=== PATIENT | female | born 1945 | race Caucasian/White ===

== ENCOUNTER → 2017-10-06 | Outpatient (CLI) | payer MEDICARE, OTHER ==
[~2017-10-06] MED LIST: DITROPAN XL5 MG PO; NEXIUM40 MG PO; TYLENOL WITH C1 EACH PO; ULTRAM50 MG PO; ZOLOFT50 MG PO
--- NOTE | 2017-10-06 11:06 | Diagnostic Imaging Report ---
PROCEDURE:X-RAY ABDOMEN - KUB COMPARISON:KUB 08/25/1217. INDICATIONS:CALCULI OF KIDNEY FINDINGS: There are no dilated loops of bowel to suggest obstruction. There are no masses or abnormal calcifications. There is no evidence of free air. No acute osseous abnormalities are present. Vertebral plasty in T12 vertebral body. CONCLUSION: No acute abdominal abnormality. Dictated by: Derik Graves M.D. on 10/06/2017 at 11:14 Electronically approved by: Derik Graves M.D. on 10/06/2017 at 11:14
== END ==
LOC: RAD 08:25
PROVIDERS: ATTEND Urology
DX: N20.0 Calculus of kidney (principal)
CPT/HCPCS: 74000

== ENCOUNTER 2017-10-20 15:10 | Observation (INO) | payer MEDICARE, OTHER ==
[~2017-10-20] VITALS: Ht 160 cm; Wt 74.6 kg
[2017-10-20 15:43] LABS: BILIRUBIN,URINE NEGATIVE (NEGATIVE); CLARITY,URINE CLEAR (CLEAR); COLOR,URINE YELLOW (YELLOW); KETONES,URINE NEGATIVE (NEGATIVE); LEUKOCYTE ESTERASE ,URINE NEGATIVE (NEGATIVE); NITRITE,URINE NEGATIVE (NEGATIVE); PROTEIN,URINE DIPSTICK NEGATIVE (NEGATIVE); URINE UROBILINOGEN 0.2 mg/dL (0.2 - 1)
[2017-10-20] MEDS ORDERED: ONDANSETRON HCL INJ 2 MG/ML VIAL IV STA (15:46)
[2017-10-20 15:49] LABS: EPITHELIAL CELLS,URINE RARE /LPF; RBC,URINE 0-5 /HPF (0-5); WBC,URINE (MAN) 0-5 /HPF (0-5)
[2017-10-20 16:07] LABS: BASOPHILS % 0.5 % (0.0-1.0); EOSINOPHILS # (AUTO) 0.2 (0.0-0.4); EOSINOPHILS % 2.9 % (0.0-6.0); HEMATOCRIT 40.5 % (34.2-44.1); HEMOGLOBIN 13.8 g/dL (12.0-16.0); LYMPHOCYTES % 30.4 % (18.0-39.1); MEAN CORPUSCULAR HEMOGLOBIN 29.9 pg (28-32); MEAN CORPUSCULAR HGB CONC 34.1 g/dL (31-35); MEAN CORPUSCULAR VOLUME 87.7 fL (81-99); MONOCYTES # (AUTO) 0.3 (0.2-0.8); MONOCYTES % 5.3 % (4.4-11.3); NEUTROPHILS # (AUTO) 3.9 (2.1-6.9); NEUTROPHILS % 60.6 % (38.7-80.0); PLATELET COUNT 195 x10e3/uL (140-360); RED BLOOD COUNT 4.62 x10e6/uL (3.6-5.1); RED CELL DISTRIBUTION WIDTH 13.1 % (11.7-14.4)
[2017-10-20 16:25] LABS: ALANINE AMINOTRANSFERASE 15 IU/L (0-55); ALBUMIN 4.4 g/dL (3.5-5.0); ALBUMIN/GLOBULIN RATIO 1.8 (0.8-2.0); ALKALINE PHOSPHATASE 97 IU/L (40-150); ANION GAP 13.3 mmol/L (8-16); BLOOD UREA NITROGEN 15 mg/dL (7-26); BUN/CREATININE RATIO 19 (6-25); CALCIUM 9.2 mg/dL (8.4-10.2); CARBON DIOXIDE 21 mmol/L (22-29); CHLORIDE 106 mmol/L (98-107); EST GLOMERULAR FILTRATION RATE > 60 ML/MIN (60-); GLUCOSE 98 mg/dL (74-118); POTASSIUM 3.3 mmol/L (3.5-5.1); SODIUM 137 mmol/L (136-145)
[2017-10-20 16:38] LABS: B-TYPE NATRIURETIC PEPTIDE2 < 10.0 pg/mL (0-100)
[2017-10-20] MEDS ORDERED: PROMETHAZINE 12.5MG/ NACL 0.9% 12.5 MG/50 ML BAG IV ONE (18:15)
--- NOTE | 2017-10-20 18:19 | Diagnostic Imaging Report ---
EXAM: CT Abdomen and Pelvis WITH contrast INDICATION: Nausea and diarrhea COMPARISON: KUB from 10/06/[address] abdomen and pelvis from 12/13/2015 TECHNIQUE: Abdomen and pelvis were scanned utilizing a multidetector helical scanner from the lung base to the pubic symphysis after administration of IV contrast. Coronal and sagittal reformations were obtained. Routine protocol was performed. Scan was performed when during portal venous phase. IV CONTRAST: 100 mL of Isovue-370 ORAL CONTRAST: None RADIATION DOSE: Total DLP: 453.9 mGy*cm Estimated effective dose: (DLP x 0.015 x size factor) mSv COMPLICATIONS: None FINDINGS: LINES and TUBES: None. LOWER THORAX: Unremarkable HEPATOBILIARY: No focal hepatic lesions. No biliary ductal dilation. GALLBLADDER: No radio-opaque stones or sludge. No wall thickening. SPLEEN: Mild splenomegaly. The spleen measures 12.9 cm in length. PANCREAS: No focal masses or ductal dilatation. ADRENALS: No adrenal nodules KIDNEYS/URETERS: Kidneys enhance symmetrically. No hydronephrosis. No cystic or solid mass lesions. 6 mm nonobstructing calcified stone in the inferior pole of the left kidney is less denser when compared to prior exam. Additional previously noted stones are no longer seen. No calcified stones in the right kidney. GI TRACT: Diffuse inflammatory changes within the right lower quadrant involving the distal ascending colon and few loops of small bowel with an adjacent well-circumscribed fluid collection measuring 3.3 x 6.1 cm in the right pelvis on series 302, image 72. The cystic structure may represent a loculated fluid but cannot exclude focal dilatation of a small loop of bowel. Lack of oral contrast limits evaluation. PELVIC ORGANS/BLADDER: The uterus is absent. Bilateral ovaries are unremarkable. The urinary bladder is unremarkable. LYMPH NODES: No lymphadenopathy. VESSELS: Unremarkable. PERITONEUM / RETROPERITONEUM: No free air. Oval-shaped low-attenuation fluid in the right lower quadrant may represent loculated fluid but cannot exclude focal dilatation of a loop of bowel. BONES: There are degenerative changes in the lumbar spine. Kyphoplasty at T12 vertebral body. Mild wedge compression deformity of T11 vertebral body. SOFT TISSUES: Unremarkable. IMPRESSION: Diffuse inflammatory changes in the right lower quadrant involving the cecum and few loops of small bowel with an adjacent loculated fluid collection, which may represent contained fluid or focal dilatation of a loop of small bowel. Differential diagnoses include appendicitis, abscess, focal colitis. Correlated with clinical exam and recommend pelvic ultrasound. Findings were discussed with Dr. Ortez on 10/20/2017 at 6:15 PM. Signed by: Dr. Marta Montalvo M.D. on 10/20/2017 6:15 PM
[2017-10-20] MEDS ORDERED: PROMETHAZINE HCL (IM) 25 MG/ML VIAL IV PRN (18:45)
[2017-10-20] MEDS: METRONIDAZOLE 500MG/NS 100ML 100 ML IV SCH (19:08)
[2017-10-20] MEDS: SODIUM CHLORIDE 0.9% 1000ML 1,000 ML IV SCH (19:08)
[2017-10-20 20:30] VITALS: BP 133/67
--- NOTE | 2017-10-20 20:55 | Diagnostic Imaging Report ---
EXAM: Transabdominal and Transvaginal Pelvic Ultrasound INDICATION: \S\pelvic mass \S\Y COMPARISON: CT abdomen and pelvis from 10/20/2017 TECHNIQUE: Grayscale transverse and sagittal transabdominal and transvaginal images were obtained of the pelvis. Transvaginal imaging was medically necessary to better evaluate the endometrium and the adnexa. CLINICAL HISTORY: 72 year old A0; last menstrual period: Postmenopausal. FINDINGS: Uterus Partial hysterectomy. No fluid collections or masses in the surgical site. Right ovary: No visualize. Left ovary: No visualize. Adnexa: Normal Cul-de-sac: No free fluid The mildly dilated fluid filled structure noted in the right lower quadrant on prior CT appears to correspond to a mildly dilated loop of bowel. IMPRESSION: Status post hysterectomy. Ovaries not well visualized. No free fluid in the pelvis. Signed by: Dr. Marta Montalvo M.D. on 10/20/2017 8:51 PM
[2017-10-20] MEDS: PIPER-TAZ 3.375 GM 50 ML IV SCH (21:06)
[2017-10-20] MEDS ORDERED: SODIUM CHLORIDE 0.9% 50ML 50 ML ONE (22:37)
[2017-10-20] MEDS ORDERED: IOPAMIDOL 370 MG/ML 200 ML INFUS..BTL INJ ONE (22:37)
[2017-10-20 22:38] VITALS: BP 133/67
[2017-10-21] VITALS (8 sets, daily range): BP systolic 119–136; BP diastolic 60–92
[2017-10-21] MEDS: METRONIDAZOLE 500MG/NS 100ML 100 ML IV SCH ×5 (00:41→23:30)
[2017-10-21] MEDS: PROMETHAZINE 12.5MG/ NACL 0.9% 50 ML IV PRN ×2 (01:37→05:34)
[2017-10-21] MEDS: PIPER-TAZ 3.375 GM 50 ML IV SCH ×3 (05:54→22:07)
[2017-10-21 07:05] LABS: BASOPHILS % 0.6 % (0.0-1.0); EOSINOPHILS # (AUTO) 0.2 (0.0-0.4); EOSINOPHILS % 3.1 % (0.0-6.0); LYMPHOCYTES % 21.3 % (18.0-39.1); MEAN CORPUSCULAR HEMOGLOBIN 29.7 pg (28-32); MEAN CORPUSCULAR HGB CONC 33.3 g/dL (31-35); MEAN CORPUSCULAR VOLUME 89.1 fL (81-99); MONOCYTES # (AUTO) 0.3 (0.2-0.8); MONOCYTES % 6.3 % (4.4-11.3); NEUTROPHILS # (AUTO) 3.3 (2.1-6.9); NEUTROPHILS % 68.3 % (38.7-80.0); PLATELET COUNT 155 x10e3/uL (140-360); RED BLOOD COUNT 4.04 x10e6/uL (3.6-5.1); RED CELL DISTRIBUTION WIDTH 13.2 % (11.7-14.4)
[2017-10-21 07:43] LABS: ALANINE AMINOTRANSFERASE 15 IU/L (0-55); ALBUMIN 3.7 g/dL (3.5-5.0); ALBUMIN/GLOBULIN RATIO 1.6 (0.8-2.0); ALKALINE PHOSPHATASE 79 IU/L (40-150); AMYLASE 32 U/L (25-125); ANION GAP 13.1 mmol/L (8-16); BLOOD UREA NITROGEN 13 mg/dL (7-26); BUN/CREATININE RATIO 16 (6-25); CALCIUM 8.7 mg/dL (8.4-10.2); CARBON DIOXIDE 25 mmol/L (22-29); CHLORIDE 113 mmol/L (98-107); CREATININE, SERUM 0.79 mg/dL (0.57-1.11); EST GLOMERULAR FILTRATION RATE > 60 ML/MIN (60-); GLUCOSE 96 mg/dL (74-118); LIPASE 10 U/L (8-78); POTASSIUM 4.1 mmol/L (3.5-5.1); SODIUM 147 mmol/L (136-145)
--- NOTE | 2017-10-21 09:12 | Diagnostic Imaging Report ---
PROCEDURE:ABDOMEN COMP INCL UPR OR DECUB TECHNIQUE:Upright and supine AP views abdomen INDICATION:Nausea COMPARISON:Patients [facility], CT, CT ABDOMEN/PELVIS W, 10/20/2017, 16:38. Patients [facility], DX, ABDOMEN-1VIEW (KUB), 10/06/2017, 8:37. FINDINGS: Normal bowel gas pattern. No evidence of pneumatosis or pneumoperitoneum. No evidence of organomegaly or ascites. Intact skeleton. T12 vertebroplasty. CONCLUSION: No acute abnormality. Dictated by: Shon Kitchen M.D. on 10/21/2017 at 9:21 Electronically approved by: Shon Kitchen M.D. on 10/21/2017 at 9:21
[2017-10-21] MEDS ORDERED: METOCLOPRAMIDE HCL 10 MG/2ML VIAL IV ONE (09:30)
[2017-10-21] MEDS ORDERED: ONDANSETRON HCL INJ 2 MG/ML VIAL IV STA (10:11)
[2017-10-21] MEDS: SODIUM CHLORIDE 0.9% 1000ML 1,000 ML IV SCH (13:57)
[2017-10-21] MEDS ORDERED: METOCLOPRAMIDE HCL 10 MG/2ML VIAL IV SCH (15:00)
[2017-10-21] MEDS ORDERED: ONDANSETRON HCL INJ 2 MG/ML VIAL IV SCH (16:00)
[2017-10-21] MEDS ORDERED: PROMETHAZINE 12.5MG/ NACL 0.9% 12.5 MG/50 ML BAG IV PRN (17:15)
[2017-10-21] MEDS ORDERED: MAGNESIUM HYDROXIDE 30 ML UDC PO PRN (17:15)
[2017-10-21] MEDS: DOCUSATE SODIUM LIQD 100 MG/10 ML UDC NG SCH (17:31)
[2017-10-21] MEDS: FAMOTIDINE 20 MG/2 ML VIAL IV SCH (17:31)
--- NOTE | 2017-10-21 17:50 | History and Physical ---
Primary care physician: Dr. Oral Cabrera. CHIEF COMPLAINT: Nausea and vomiting. HISTORY OF PRESENT ILLNESS: This is a 72-year-old woman with a history of anxiety and depression, now developing intractable nausea for the past 7 days. On further questioning, she denies any real vomiting. She has had some diarrhea. The patient also states she has been constipated and has been taking medication with mild diarrhea. She had no fever or chills. She had worsening abdominal pain. Imaging showed some fluid collection in the right pelvis. She is admitted for further evaluation and management. PAST MEDICAL HISTORY: Depression and anxiety. Acute colitis in 2013. Renal calculus without obstruction. Urinary tract infection. Nephrolithiasis. PAST SURGICAL HISTORY: Appendectomy, hysterectomy, left breast lumpectomy. ALLERGIES: PER ELECTRONIC MEDICAL RECORDS. FAMILY HISTORY/SOCIAL HISTORY: The patient's mother had a hysterectomy. Father is with multiple strokes. She has siblings with asthma. The patient is . No alcohol, illicits or cigarettes. MEDICATIONS: Per electronic medical records. REVIEW OF SYSTEMS: Denies any chest pain at this time. PHYSICAL EXAMINATION VITAL SIGNS: Reviewed. GENERAL APPEARANCE: A tired-appearing woman resting in the bed. HEENT: Anicteric. CARDIOVASCULAR: Normal S1 and S2. LUNGS: Moderate breath sounds, ABDOMEN: Soft and nontender. Nondistended. EXTREMITIES: There is no edema or calf tenderness. NEUROLOGIC: Alert and oriented x3. Moving all extremities. SKIN: Dry. PSYCHIATRIC: Normal affect. LABS: Reviewed. MEDICATIONS: Reviewed. ASSESSMENT AND PLAN: A 72-year-old woman. 1. Intractable nausea. Will use antiemetics. Will start on a clear liquid diet now. 2. Hypernatremia. Will rehydrate the patient and reassess. 3. Right pelvic fluid collection. The patient does not have any fever. There is no leukocytosis. No abdominal pain. She has been evaluated by surgery. This does not appear to be an abscess, but will continue empirically with IV Zosyn and reassess labs tomorrow. 4. Anxiety disorder. Restart her home medication. 5. Prophylaxis: SCDs. DISPOSITION: Monitor closely overnight and obtain labs in the morning and start liquid diet. Job#: [id number]
[2017-10-21] MEDS: ONDANSETRON HCL INJ 2 MG/ML VIAL IV SCH (20:12)
[2017-10-21] MEDS: SENNOSIDES 8.6 MG TAB PO SCH (21:00)
[2017-10-22] VITALS: BP 117/53
[2017-10-22] MEDS: ONDANSETRON HCL INJ 2 MG/ML VIAL IV SCH ×4 (03:31→21:00)
[2017-10-22 04:00] VITALS: BP 116/55
[2017-10-22] MEDS: PIPER-TAZ 3.375 GM 50 ML IV SCH ×3 (06:14→21:33)
[2017-10-22] MEDS: METRONIDAZOLE 500MG/NS 100ML 100 ML IV SCH ×4 (06:50→23:48)
[2017-10-22 06:57] LABS: BASOPHILS % 0.7 % (0.0-1.0); EOSINOPHILS # (AUTO) 0.2 (0.0-0.4); EOSINOPHILS % 3.9 % (0.0-6.0); HEMATOCRIT 37.2 % (34.2-44.1); HEMOGLOBIN 12.4 g/dL (12.0-16.0); LYMPHOCYTES # (AUTO) 1.7 (1.0-3.2); LYMPHOCYTES % 27.8 % (18.0-39.1); MEAN CORPUSCULAR HEMOGLOBIN 29.5 pg (28-32); MEAN CORPUSCULAR HGB CONC 33.3 g/dL (31-35); MEAN CORPUSCULAR VOLUME 88.6 fL (81-99); MONOCYTES # (AUTO) 0.4 (0.2-0.8); MONOCYTES % 6.4 % (4.4-11.3); NEUTROPHILS # (AUTO) 3.7 (2.1-6.9); PLATELET COUNT 151 x10e3/uL (140-360); RED CELL DISTRIBUTION WIDTH 13.2 % (11.7-14.4)
[2017-10-22 07:19] LABS: ANION GAP 14.3 mmol/L (8-16); BLOOD UREA NITROGEN 11 mg/dL (7-26); BUN/CREATININE RATIO 14 (6-25); CALCIUM 8.6 mg/dL (8.4-10.2); CARBON DIOXIDE 20 mmol/L (22-29); CHLORIDE 115 mmol/L (98-107); CREATININE, SERUM 0.81 mg/dL (0.57-1.11); EST GLOMERULAR FILTRATION RATE > 60 ML/MIN (60-); GLUCOSE 96 mg/dL (74-118); MAGNESIUM 1.7 MG/DL (1.3-2.1); PHOSPHORUS 2.9 MG/DL (2.3-4.7); POTASSIUM 3.3 mmol/L (3.5-5.1); SODIUM 146 mmol/L (136-145)
[2017-10-22 08:00] VITALS: BP_SYST 128; BP_SYST 143; BP_DIAS 61; BP_DIAS 64
[2017-10-22] MEDS ORDERED: DEXTROSE 5%/0.45% SOD CHL 1,000 ML IV ONE (08:15)
[2017-10-22] MEDS ORDERED: POTASSIUM CHLORIDE 20MEQ/100ML 100 ML IV ONE (08:30)
[2017-10-22] MEDS: LORAZEPAM INJ 2 MG/ML VIAL IV PRN (08:41)
[2017-10-22] MEDS: FAMOTIDINE 20 MG/2 ML VIAL IV SCH ×2 (09:18→17:36)
[2017-10-22] MEDS: SERTRALINE HCL 50 MG TAB PO SCH (09:18)
[2017-10-22] MEDS: DOCUSATE SODIUM LIQD 100 MG/10 ML UDC NG SCH ×2 (09:44→16:08)
[2017-10-22] MEDS: SENNOSIDES 8.6 MG TAB PO SCH ×2 (09:44→20:08)
[2017-10-22] MEDS ORDERED: PEG (High)/E-LYTE SOLN 4,000 ML BTL PO NR (10:00)
[2017-10-22 10:10] VITALS: BP 143/64
[2017-10-22 12:32] VITALS: BP 141/67
[2017-10-22] MEDS ORDERED: POTASSIUM CHLORIDE 20 MEQ TAB CR PO STA (13:03)
[2017-10-22 20:00] VITALS: BP 132/59
[2017-10-23] VITALS (8 sets, daily range): BP systolic 118–132; BP diastolic 58–89
[2017-10-23] MEDS: ONDANSETRON HCL INJ 2 MG/ML VIAL IV SCH ×4 (03:00→21:50)
[2017-10-23] MEDS: PIPER-TAZ 3.375 GM 50 ML IV SCH ×3 (05:40→21:51)
[2017-10-23] MEDS: METRONIDAZOLE 500MG/NS 100ML 100 ML IV SCH ×4 (06:00→23:09)
[2017-10-23 06:42] LABS: BASOPHILS % 0.6 % (0.0-1.0); EOSINOPHILS # (AUTO) 0.3 (0.0-0.4); EOSINOPHILS % 6.3 % (0.0-6.0); HEMATOCRIT 33.3 % (34.2-44.1); HEMOGLOBIN 11.2 g/dL (12.0-16.0); LYMPHOCYTES # (AUTO) 1.2 (1.0-3.2); LYMPHOCYTES % 24.4 % (18.0-39.1); MEAN CORPUSCULAR HEMOGLOBIN 29.8 pg (28-32); MEAN CORPUSCULAR HGB CONC 33.6 g/dL (31-35); MEAN CORPUSCULAR VOLUME 88.6 fL (81-99); MONOCYTES # (AUTO) 0.3 (0.2-0.8); MONOCYTES % 6.3 % (4.4-11.3); NEUTROPHILS % 61.8 % (38.7-80.0); PLATELET COUNT 137 x10e3/uL (140-360); RED BLOOD COUNT 3.76 x10e6/uL (3.6-5.1); RED CELL DISTRIBUTION WIDTH 13.2 % (11.7-14.4)
[2017-10-23 06:58] LABS: ANION GAP 10.3 mmol/L (8-16); BLOOD UREA NITROGEN 10 mg/dL (7-26); BUN/CREATININE RATIO 13 (6-25); CALCIUM 8.2 mg/dL (8.4-10.2); CARBON DIOXIDE 23 mmol/L (22-29); CHLORIDE 113 mmol/L (98-107); CREATININE, SERUM 0.78 mg/dL (0.57-1.11); EST GLOMERULAR FILTRATION RATE > 60 ML/MIN (60-); GLUCOSE 107 mg/dL (74-118); MAGNESIUM 1.8 MG/DL (1.3-2.1); PHOSPHORUS 2.5 MG/DL (2.3-4.7); POTASSIUM 3.3 mmol/L (3.5-5.1); SODIUM 143 mmol/L (136-145)
[2017-10-23] MEDS: LORAZEPAM INJ 2 MG/ML VIAL IV PRN (07:45)
[2017-10-23] MEDS: SENNOSIDES 8.6 MG TAB PO SCH ×2 (08:59→21:00)
[2017-10-23] MEDS: SERTRALINE HCL 50 MG TAB PO SCH (08:59)
[2017-10-23] MEDS: DOCUSATE SODIUM LIQD 100 MG/10 ML UDC NG SCH ×2 (08:59→17:00)
[2017-10-23] MEDS: FAMOTIDINE 20 MG/2 ML VIAL IV SCH ×2 (08:59→19:05)
[2017-10-23] MEDS ORDERED: DEXTROSE 5%/0.45% SOD CHL 1,000 ML IV ONE (09:15)
[2017-10-23] MEDS ORDERED: POTASSIUM CHLORIDE 20MEQ/100ML 100 ML IV ONE ×2 (09:15→10:00)
[2017-10-23] MEDS ORDERED: FENTANYL CITRATE/PF 100MCG/2 ML INJ ONE (15:09)
[2017-10-23] MEDS ORDERED: MIDAZOLAM HCL 2 MG/2 ML VIAL ONE (15:09)
[2017-10-23] MEDS ORDERED: PROPOFOL IV EMULSION 10 MG/ML 50 ML VIAL ONE (15:12)
[2017-10-23] MEDS ORDERED: HYOSCYAMINE SULFATE 0.5 MG/ML AMP ONE (15:12)
[2017-10-24] VITALS: BP 113/57
--- NOTE | 2017-10-24 02:30 | Operative Report ---
DATE OF PROCEDURE: October 23, 2017 REFERRING PHYSICIAN: Dr. Bozena Schmidt PROCEDURE PERFORMED: Colonoscopy with polypectomy and biopsies. INDICATIONS FOR COLONOSCOPY: Abnormal CT scan of the abdomen. MEDICATION: Patient was done under MAC. Please see anesthesiologist's note. PROCEDURE: With the patient in the left lateral decubitus position, the flexible fiberoptic Olympus colonoscope was inserted into the rectum with ease and advanced all the way to the cecum. Mucosa overlying the cecum revealed some patchy areas of erythema and low-grade to moderate edema, and biopsies were obtained. The ileocecal valve was intubated. The scope was advanced into the terminal ileum. Biopsies were obtained. The scope was then withdrawn back into the colon. It was then withdrawn slowly. Mucosa overlying the ascending and transverse grossly appeared to be within normal limits. One polyp was hot biopsied from the descending colon. One polyp was hot biopsied from the sigmoid. Minimal diverticulosis was noted in the sigmoid. The rectum grossly appeared to be within normal limits. The scope was then with retroflexed into the distal rectum, and the area around the dentate line appeared to be within normal limits. The scope was then withdrawn. External hemorrhoids were noted on the way out. Patient tolerated the procedure well. IMPRESSION 1. Descending colon polyp, hot biopsied. 2. Sigmoid colon polyp, hot biopsied. 3. Diverticulosis of sigmoid colon, minimal. 4. External hemorrhoids. PLAN: Follow up histology. Initiate GI soft diet. Patient will need a followup colonoscopy in 3 years. Job#: [id number] RI cc:BOZENA SCHMIDT MD
[2017-10-24] MEDS: ONDANSETRON HCL INJ 2 MG/ML VIAL IV SCH ×3 (02:48→14:01)
[2017-10-24 04:00] VITALS: BP 120/64
[2017-10-24] MEDS: PIPER-TAZ 3.375 GM 50 ML IV SCH ×2 (05:50→13:46)
[2017-10-24 06:12] LABS: BASOPHILS % 0.6 % (0.0-1.0); EOSINOPHILS # (AUTO) 0.4 (0.0-0.4); EOSINOPHILS % 7.2 % (0.0-6.0); HEMATOCRIT 33.9 % (34.2-44.1); HEMOGLOBIN 11.5 g/dL (12.0-16.0); LYMPHOCYTES # (AUTO) 1.3 (1.0-3.2); LYMPHOCYTES % 24.7 % (18.0-39.1); MEAN CORPUSCULAR HEMOGLOBIN 29.8 pg (28-32); MEAN CORPUSCULAR HGB CONC 33.9 g/dL (31-35); MEAN CORPUSCULAR VOLUME 87.8 fL (81-99); MONOCYTES # (AUTO) 0.3 (0.2-0.8); MONOCYTES % 6.3 % (4.4-11.3); NEUTROPHILS # (AUTO) 3.3 (2.1-6.9); NEUTROPHILS % 60.8 % (38.7-80.0); PLATELET COUNT 129 x10e3/uL (140-360); RED BLOOD COUNT 3.86 x10e6/uL (3.6-5.1); RED CELL DISTRIBUTION WIDTH 13.1 % (11.7-14.4)
[2017-10-24] MEDS: METRONIDAZOLE 500MG/NS 100ML 100 ML IV SCH ×3 (06:34→17:28)
[2017-10-24 06:39] LABS: ANION GAP 10.3 mmol/L (8-16); BLOOD UREA NITROGEN 6 mg/dL (7-26); BUN/CREATININE RATIO 8 (6-25); CALCIUM 8.3 mg/dL (8.4-10.2); CARBON DIOXIDE 22 mmol/L (22-29); CHLORIDE 114 mmol/L (98-107); CREATININE, SERUM 0.79 mg/dL (0.57-1.11); EST GLOMERULAR FILTRATION RATE > 60 ML/MIN (60-); GLUCOSE 94 mg/dL (74-118); POTASSIUM 3.3 mmol/L (3.5-5.1); SODIUM 143 mmol/L (136-145)
[2017-10-24 08:00] VITALS: BP 116/57
[2017-10-24] MEDS: DOCUSATE SODIUM LIQD 100 MG/10 ML UDC NG SCH ×2 (08:30→17:00)
[2017-10-24] MEDS: SERTRALINE HCL 50 MG TAB PO SCH (08:30)
[2017-10-24] MEDS: SENNOSIDES 8.6 MG TAB PO SCH (08:30)
[2017-10-24] MEDS: FAMOTIDINE 20 MG/2 ML VIAL IV SCH ×2 (08:30→17:28)
[2017-10-24 09:36] VITALS: BP 116/57
[2017-10-24 12:07] VITALS: BP 140/66
[2017-10-24] MEDS ORDERED: POTASSIUM CHLORIDE 20 MEQ TAB CR PO ONE (14:00)
[2017-10-24] MEDS ORDERED: SENOKOT8.6 MG PO (14:56)
[2017-10-24] MEDS ORDERED: COLACE100 MG/10 NG (14:56)
[2017-10-24 16:10] VITALS: BP 150/67
== END 2017-10-24 19:39 | disposition home or self-care (01) ==
LOC: ER 15:10 → MED/SURG 19:46
PROVIDERS: ADMIT Internal Medicine; ATTEND Internal Medicine
DX: R11.0 Nausea (principal); K63.5 Polyp of colon; E87.0 Hyperosmolality and hypernatremia; E87.6 Hypokalemia; K63.89 Other specified diseases of intestine; K57.30 Diverticulosis of large intestine without perforation or abscess without bleeding; K59.00 Constipation, unspecified; K64.4 Residual hemorrhoidal skin tags; R19.00 Intra-abdominal and pelvic swelling, mass and lump, unspecified site; R93.5 Abnormal findings on diagnostic imaging of other abdominal regions, including retroperitoneum; F32.9 Major depressive disorder, single episode, unspecified; F41.9 Anxiety disorder, unspecified; Z87.440 Personal history of urinary (tract) infections; Z87.442 Personal history of urinary calculi
CPT/HCPCS: 36415 ×5; 45384; 74021; 74177; 76856; 80048 ×3; 80053 ×2; 81001; 82150; 83605; 83690; 83735 ×2; 83880; 84100 ×2; 84132; 85025 ×5; 87086; 88305; 96367 ×2; 96374; 96375; 96376; 97139; 99284; G0378 ×5; J1980; J2060 ×3; J2250; J2405 ×5; J2543 ×5; J2550 ×2; J2765; J3480 ×2; J7030 ×2; Q9967; 45380; 74020

== ENCOUNTER → 2018-03-08 | Outpatient (CLI) | payer MEDICARE, OTHER ==
[~2018-03-08] MED LIST changes: +COLACE100 MG/10 NG; +SENOKOT8.6 MG PO
--- NOTE | 2018-03-08 14:30 | Diagnostic Imaging Report ---
PROCEDURE:X-RAY ABDOMEN - KUB COMPARISON:Patients [facility], CT, CT ABDOMEN/PELVIS W, 10/20/2017, 16:38. Patients [facility], DX, ABDOMEN COMP INCL UPR OR DECUB, 10/21/2017, 8:51. INDICATIONS:KIDNEY STONES FINDINGS: There is a non-obstructed bowel-gas pattern. 2-3 mm radiopaque density projecting in the inferior pole of the left kidney, corresponding to the obstructing calculus seen on CT dated 10/20/2017. No other radiopaque densities project over the renal shadows, expected course of ureters or bladder. Generalized osteopenia, with chronic compression deformity and vertebroplasty changes at T12. No acute bony abnormalities. CONCLUSION: 2-3 mm nonobstructing calculus in the inferior pole of the left kidney. No other radiopaque densities project over the genitourinary system. Bear Harris M.D. Dictated by: Bear Harris M.D. on 03/08/2018 at 14:33 Electronically approved by: Bear Harris M.D. on 03/08/2018 at 14:33
== END ==
LOC: RAD 09:06
PROVIDERS: ATTEND Urology
DX: N20.0 Calculus of kidney (principal)
CPT/HCPCS: 74018

== ENCOUNTER → 2018-11-24 | Outpatient (CLI) | payer MEDICARE, OTHER ==
--- NOTE | 2018-11-24 09:44 | Diagnostic Imaging Report ---
Exam: Abdominal film Clinical History: Renal calculus Comparison: CT abdomen and pelvis 10/20/2017 DISCUSSION: 3-4 mm left lower pole renal calculus is again noted. No additional calcifications project over the renal shadows or expected ureteral courses. Vertebroplasty cement within the T12 vertebral body. No mass effect or organomegaly. Bowel gas pattern is nonobstructive. Regional skeletal structures are osteopenic but otherwise intact. IMPRESSION: 3-4 mm left lower pole renal calculus appears unchanged in position relative to CT abdomen from October 2017. Signed by: Dr. Morales Jim M.D. on 11/24/2018 9:41 AM
== END ==
LOC: RAD 09:13
PROVIDERS: ATTEND Urology
DX: N20.0 Calculus of kidney (principal)
CPT/HCPCS: 74018

== ENCOUNTER → 2020-06-06 | Outpatient (CLI) | payer MEDICARE, OTHER ==
--- NOTE | 2020-06-06 10:29 | Diagnostic Imaging Report ---
Exam: KUB Indication: Renal calculi Comparison: Ultrasound 07/24/2019. KUB 07/24/2019. KUB of 11/24/2018 Findings: Again seen and not significant changed is a 4 mm left lower pole renal calculus. No additional radiographically apparent renal calculi. Nonobstructive bowel gas pattern. No free air. Phleboliths in the pelvis. Status post vertebral augmentation at T12. Impression: Unchanged 4 mm left lower pole renal calculus. Signed by: Dr. Gustabo Lainez M.D. on 06/06/2020 10:26 AM
== END ==
LOC: RAD 09:58
PROVIDERS: ATTEND Urology
DX: N20.0 Calculus of kidney (principal)
CPT/HCPCS: 74018

== ENCOUNTER → 2020-10-25 | Day surgery (SDC) | payer MEDICARE, OTHER ==
[2020-10-22 09:20] LABS: BASOPHILS % 0.8 % (0.0-1.0); EOSINOPHILS # (AUTO) 0.2 (0.0-0.4); EOSINOPHILS % 2.9 % (0.0-6.0); HEMATOCRIT 37.1 % (34.2-44.1); HEMOGLOBIN 12.4 g/dL (12.0-16.0); LYMPHOCYTES # (AUTO) 1.5 (1.0-3.2); LYMPHOCYTES % 28.5 % (18.0-39.1); MEAN CORPUSCULAR HEMOGLOBIN 28.6 pg (28-32); MEAN CORPUSCULAR HGB CONC 33.4 g/dL (31-35); MEAN CORPUSCULAR VOLUME 85.7 fL (81-99); MONOCYTES # (AUTO) 0.3 (0.2-0.8); MONOCYTES % 5.2 % (4.4-11.3); NEUTROPHILS # (AUTO) 3.3 (2.1-6.9); NEUTROPHILS % 62.4 % (38.7-80.0); PLATELET COUNT 152 x10e3/uL (140-360); RED BLOOD COUNT 4.33 x10e6/uL (3.6-5.1); RED CELL DISTRIBUTION WIDTH 12.7 % (11.7-14.4)
[2020-10-22 09:45] LABS: ANION GAP 15.2 mmol/L (8-16); CALCIUM 8.6 mg/dL (8.4-10.2); CREATININE, SERUM 0.96 mg/dL (0.57-1.11); POTASSIUM 4.2 mmol/L (3.5-5.1)
[~2020-10-25] MED LIST changes: +ATIVAN0.5 MG PO; +B&O 60MG R/S 60 MG SUPP PR ONE; +BACTRIM DS TAB1 EACH PO; +CEFTRIAXONE SOD 1 GM/NS 50 ML 50 ML IV ONE; +DEXAMETHASONE SOD PHOS INJ 4 MG/ML VIAL ONE; +GENTAMICIN 80MG/NS 100 ML 200 ML IV ONE; +IOPAMIDOL 300MG/ML 50ML INFUS..BTL IV ONE; +LIDOCAINE HCL 2% LOCAL INJ 5 ML SDV VIAL INJ ONE; +ONDANSETRON HCL INJ 2MG/ML 2ML 2 MG/ML VIAL ONE; +PANTOPRAZOLE SO40 MG PO; +PROPOFOL IV EMULSION 10 MG/ML 20 ML VIAL ONE; +SEVOFLURANE INHAL SOLN 250 ML PEN BTL ONE; +ZOFRAN4 MG PO
[2020-10-25 11:20] VITALS: BP 130/78
== END | disposition home or self-care (01) ==
LOC: OR 06:37
PROVIDERS: ATTEND Urology
DX: N20.0 Calculus of kidney (principal); N39.0 Urinary tract infection, site not specified; N81.10 Cystocele, unspecified; N95.2 Postmenopausal atrophic vaginitis; K21.9 Gastro-esophageal reflux disease without esophagitis; R11.2 Nausea with vomiting, unspecified; M54.9 Dorsalgia, unspecified; F32.9 Major depressive disorder, single episode, unspecified; F41.9 Anxiety disorder, unspecified; Z88.6 Allergy status to analgesic agent; Z88.1 Allergy status to other antibiotic agents; Z88.8 Allergy status to other drugs, medicaments and biological substances; Z01.810 Encounter for preprocedural cardiovascular examination; Z01.812 Encounter for preprocedural laboratory examination; Z20.822 Contact with and (suspected) exposure to COVID-19
CPT/HCPCS: 36415; 50590; 71046; 74018; 80048; 84550; 85025; 93005; C1758; J0696; J1580; Q9967; U0002; J1100; J2001; J2405

== ENCOUNTER → 2021-04-01 | Outpatient (CLI) | payer MEDICARE, OTHER ==
[~2021-04-01] MED LIST changes: -B&O 60MG R/S 60 MG SUPP PR ONE; -CEFTRIAXONE SOD 1 GM/NS 50 ML 50 ML IV ONE; -DEXAMETHASONE SOD PHOS INJ 4 MG/ML VIAL ONE; -GENTAMICIN 80MG/NS 100 ML 200 ML IV ONE; -IOPAMIDOL 300MG/ML 50ML INFUS..BTL IV ONE; -LIDOCAINE HCL 2% LOCAL INJ 5 ML SDV VIAL INJ ONE; -ONDANSETRON HCL INJ 2MG/ML 2ML 2 MG/ML VIAL ONE; -PROPOFOL IV EMULSION 10 MG/ML 20 ML VIAL ONE; -SEVOFLURANE INHAL SOLN 250 ML PEN BTL ONE
== END ==
LOC: RAD 14:00
PROVIDERS: ATTEND Urology
DX: N20.0 Calculus of kidney (principal)
CPT/HCPCS: 74018